=== PATIENT | male | born 1955 | race Caucasian/White ===

== ENCOUNTER 2018-04-29 06:28 | Day surgery (SDC) | payer OTHER ==
[~2018-04-29] VITALS: Ht 190.5 cm; Wt 70.0 kg
[~2018-04-29 06:28] MED LIST: ALBU2.5V5 NEB; ASPI325EC PO; BUDE6HFA INH; BUPROPION PO; CLON.5 PO; Cardizem CD 24240 MG PO; Dicyclomine HCl10 MG PO; ELIQUIS5 MG PO; Flecainide Ace150 MG PO; LANOXIN125 MCG PO; MIRT30 PO; OMEPRAZOLE MAGN20 MG PO; POTA10T PO; PROVENTIL INH; TIMOLOL 0.5%-LAT5 ML UD; TIOT18 INH; TRAZ100 PO
== END 2018-04-29 14:40 | disposition home or self-care (01) ==
LOC: MHTC 06:28
PROC: 4A023N7 Measurement of Cardiac Sampling and Pressure, Left Heart, Percutaneous Approach (ICD-10-PCS; principal; 2018-04-29)
PROC: B211YZZ Fluoroscopy of Multiple Coronary Arteries using Other Contrast (ICD-10-PCS; principal; 2018-04-29)
DX: I48.1 Persistent atrial fibrillation (principal); R06.02 Shortness of breath; R53.83 Other fatigue; R07.89 Other chest pain; I10 Essential (primary) hypertension; E78.5 Hyperlipidemia, unspecified; J44.9 Chronic obstructive pulmonary disease, unspecified; Z87.891 Personal history of nicotine dependence; E78.00 Pure hypercholesterolemia, unspecified
CPT/HCPCS: 93460; 99152; 99153; C1769; C1894; J0690; J1644; J2250; J3010; J7030; Q9967

== ENCOUNTER 2018-05-02 14:11 | Emergency (ER) | payer SELFPAY ==
[~2018-05-02] VITALS: Ht 190.5 cm; Wt 70.3 kg
== END 2018-05-02 15:05 | disposition home or self-care (01) ==
LOC: ER 14:11
DX: L76.32 Postprocedural hematoma of skin and subcutaneous tissue following other procedure (principal); J44.9 Chronic obstructive pulmonary disease, unspecified; Z79.899 Other long term (current) drug therapy; Z87.891 Personal history of nicotine dependence
CPT/HCPCS: 99282

== ENCOUNTER 2018-05-26 10:40 | Day surgery (SDC) | payer OTHER ==
[~2018-05-26] VITALS: Ht 190.5 cm; Wt 72.7 kg
[~2018-05-26 10:40] MED LIST changes: +ADULT ASPIRIN81 MG PO; +ALBU90OI6 INH; +BUPROPION HCL200 MG PO; +Cardizem LA240 MG PO; +FURO20 PO
== END 2018-05-26 22:46 | disposition home or self-care (01) ==
LOC: MHTC 10:40
DX: I48.1 Persistent atrial fibrillation (principal); I10 Essential (primary) hypertension; Z79.02 Long term (current) use of antithrombotics/antiplatelets; Z79.899 Other long term (current) drug therapy
CPT/HCPCS: 92960; 93005; 93010; J7120

== ENCOUNTER 2018-10-17 12:13 | Day surgery (SDC) | payer OTHER ==
[~2018-10-17] VITALS: Ht 190.5 cm; Wt 68.7 kg
[~2018-10-17 12:13] MED LIST changes: +LATANOPROST 0.7.5 ML
== END 2018-10-17 13:30 | disposition home or self-care (01) ==
LOC: ORSCSDS 12:13
PROVIDERS: Internal Medicine Gastroenterology
PROC: 0DB68ZX Excision of Stomach, Via Natural or Artificial Opening Endoscopic, Diagnostic (ICD-10-PCS; principal; 2018-10-17 13:45)
DX: R93.3 Abnormal findings on diagnostic imaging of other parts of digestive tract (principal); I48.91 Unspecified atrial fibrillation; J44.9 Chronic obstructive pulmonary disease, unspecified; I10 Essential (primary) hypertension; Z87.891 Personal history of nicotine dependence; Z79.899 Other long term (current) drug therapy
CPT/HCPCS: 88305; 88342; J2250; J7120

== ENCOUNTER 2019-01-13 11:31 | Day surgery (SDC) | payer OTHER ==
[~2019-01-13] VITALS: Ht 190.5 cm; Wt 66.2 kg
--- NOTE | 2019-01-13 14:03 | NUR ---
01/13/19 1403 Jemima Henson 10ML NORMAL SALINE USED TO RAISE CECAL POLYP
== END 2019-01-13 15:16 | disposition home or self-care (01) ==
LOC: ORSCSDS 11:31
PROVIDERS: Internal Medicine Gastroenterology
PROC: 0DBL8ZX Excision of Transverse Colon, Via Natural or Artificial Opening Endoscopic, Diagnostic (ICD-10-PCS; principal; 2019-01-13 13:30)
PROC: 0DBH8ZX Excision of Cecum, Via Natural or Artificial Opening Endoscopic, Diagnostic (ICD-10-PCS; principal; 2019-01-13 13:30)
PROC: 0DBN8ZX Excision of Sigmoid Colon, Via Natural or Artificial Opening Endoscopic, Diagnostic (ICD-10-PCS; principal; 2019-01-13 13:30)
PROC: 0DBP8ZX Excision of Rectum, Via Natural or Artificial Opening Endoscopic, Diagnostic (ICD-10-PCS; principal; 2019-01-13 13:30)
DX: R19.5 Other fecal abnormalities (principal); D12.0 Benign neoplasm of cecum; D12.3 Benign neoplasm of transverse colon; D12.5 Benign neoplasm of sigmoid colon; D12.8 Benign neoplasm of rectum; K57.30 Diverticulosis of large intestine without perforation or abscess without bleeding; K64.8 Other hemorrhoids; J44.9 Chronic obstructive pulmonary disease, unspecified; I48.0 Paroxysmal atrial fibrillation; Z87.891 Personal history of nicotine dependence; Z79.01 Long term (current) use of anticoagulants; Z79.899 Other long term (current) drug therapy
CPT/HCPCS: 88305; J2704; J7120

== ENCOUNTER 2020-09-15 10:31 | Emergency (ER) | payer OTHER ==
[~2020-09-15] VITALS: Ht 190.5 cm; Wt 72.6 kg
== END 2020-09-15 12:30 | disposition home or self-care (01) ==
LOC: ER 10:31
DX: S99.921A Unspecified injury of right foot, initial encounter (principal); Z79.51 Long term (current) use of inhaled steroids; Z79.899 Other long term (current) drug therapy; Z79.01 Long term (current) use of anticoagulants; W17.2XXA Fall into hole, initial encounter
CPT/HCPCS: 73630

== ENCOUNTER 2021-11-30 13:12 | Emergency (ER) | payer OTHER ==
[~2021-11-30] VITALS: Ht 190.5 cm; Wt 68.0 kg
[2021-11-30] MEDS ORDERED: Norco 5-325 Ta1 EACH PO (14:34)
== END 2021-11-30 16:50 | disposition home or self-care (01) ==
LOC: ER 13:12
DX: T20.14XA Burn of first degree of nose (septum), initial encounter (principal); T20.12XA Burn of first degree of lip(s), initial encounter; F17.200 Nicotine dependence, unspecified, uncomplicated; J44.9 Chronic obstructive pulmonary disease, unspecified; X08.8XXA Exposure to other specified smoke, fire and flames, initial encounter
CPT/HCPCS: 96374; 96376; 99283-25; J2270

== ENCOUNTER 2022-08-23 08:14 | Day surgery (SDC) | payer OTHER ==
[~2022-08-23] VITALS: Ht 190.5 cm; Wt 62.4 kg
[~2022-08-23 08:14] MED LIST changes: +Norco 5-325 Ta1 EACH PO
[2022-08-23] MEDS ORDERED: OMEP20ER PO (08:48)
--- NOTE | 2022-08-23 08:51 | NUR ---
08/23/22 0851 Jaky Garcia AT 0843 PLEDGET AT 0831
--- NOTE | 2022-08-23 09:56 | NUR ---
08/23/22 0956 Zonia Montes A REPORT PASSED ONTO SDU. THEY WILL NOTIFY PCP OF HR.
--- NOTE | 2022-08-23 09:58 | NUR ---
08/23/22 0958 Guera Williamson'K[address] MARTINEZ WANTS STAFF TO CALL THE VE PCP FOR PT HE HAD SOME FIBULATION DURING HIS CATARACT PROCEDURE .. RATES FROM [id number]. LIANET LUCIANO WORKING ON THE CALL NOW...
== END 2022-08-23 10:28 | disposition home or self-care (01) ==
LOC: ORSCSDS 08:14
PROVIDERS: Ophthalmology
PROC: 08RK3JZ Replacement of Left Lens with Synthetic Substitute, Percutaneous Approach (ICD-10-PCS; principal; 2022-08-23 09:30)
DX: H25.12 Age-related nuclear cataract, left eye (principal); I48.91 Unspecified atrial fibrillation; J44.9 Chronic obstructive pulmonary disease, unspecified; K21.9 Gastro-esophageal reflux disease without esophagitis; G47.33 Obstructive sleep apnea (adult) (pediatric); Z79.51 Long term (current) use of inhaled steroids; Z79.899 Other long term (current) drug therapy; Z79.01 Long term (current) use of anticoagulants; Z87.891 Personal history of nicotine dependence
CPT/HCPCS: J2001; J2250; J3010; J3301; V2632

== ENCOUNTER 2022-09-13 08:02 | Day surgery (SDC) | payer OTHER ==
[~2022-09-13] VITALS: Ht 190.5 cm; Wt 64.8 kg
[~2022-09-13 08:02] MED LIST changes: +OMEP20ER PO
--- NOTE | 2022-09-13 09:03 | NUR ---
09/13/22 0903 Mercedes Ramos IN AT 0846 BHAVIN IN AT 0862
--- NOTE | 2022-09-13 14:18 | NUR ---
09/13/22 1418 Malick Rivas PULSE OXYMETERY INACURATE DUE TO IRREGULAR HEART BEAT IN STEP DOWN . PT'S PULSE WAS PALPATED FROM HIGH 50'S TO 110'S IN STEP DOWN. PT HAS HISTORY OF ATRIAL FIBRILATION. PCP AND SENIOR CLINICAL STUDY MANAGER IS AWARE, PER CIRCULATING RN. PT'S COLOR APPEARED NORMAL UPON DISCHARGE, AND HE WAS NOT DIAPHORETIC. PT DENIED DIZZINESS, CHEST PAIN, WEAKNESS, OR OTHER CARDIAC SYMPTOMS. DR. FOREMAN APPROVED PT'S DISCHARGE. PT WAS INSTRUCTED BY DR. LONG AND RN TO FOLLOW UP WITH PCP AND SENIOR CLINICAL STUDY MANAGER IMMEDIATELY REGARDING HEART FUNCTION.
== END 2022-09-13 10:50 | disposition home or self-care (01) ==
LOC: ORSCSDS 08:02
PROVIDERS: Ophthalmology
PROC: 08RJ3JZ Replacement of Right Lens with Synthetic Substitute, Percutaneous Approach (ICD-10-PCS; principal; 2022-09-13 09:30)
DX: H25.11 Age-related nuclear cataract, right eye (principal); Z96.1 Presence of intraocular lens; Z87.891 Personal history of nicotine dependence; I48.91 Unspecified atrial fibrillation; J43.9 Emphysema, unspecified; G47.33 Obstructive sleep apnea (adult) (pediatric); Z79.01 Long term (current) use of anticoagulants; Z99.81 Dependence on supplemental oxygen; Z79.899 Other long term (current) drug therapy
CPT/HCPCS: J2001; J2250; J3010; J3301; J7040; V2632

== ENCOUNTER 2024-06-04 06:08 | Emergency (ER) | payer OTHER ==
[~2024-06-04] VITALS: Ht 190.5 cm; Wt 86.2 kg
[~2024-06-04 06:08] MED LIST changes: +ALBU2.5V5; +ALBU90OI INH; +Amiodarone HCl200 MG PO; +BUPR150ER PO; +Bisoprolol Fumar5 MG PO; +DULCOLAX400 MG/5 M PO; +ELIQUIS5 M2 PO; +FINA5 PO; +FLUDROCORTISON0.1 M1 PO; +FOLI1 PO; +GABA100 PO; +GUAI600T33 PO; +KETO200ER BOTHEYES; +LATA.005SO; +LATANOPROST2.5 M3 LEFTEYE; +MIRALAX17 GM PO; +MULVITA PO; +Magic Bullet10 MG PR; +Magnesium Citr296 ML PO; +ONDA4ODT MM; +POLY500; +PRED20 PO; +REMERON30 M6 PO; +STIOLTO RESPIMAT4 G1 INH; +TAMS.4ER PO; +ZADITOR5 M1
[2024-06-04] MEDS ORDERED: FentaNYL Citrate 50 MCG/ML 2 ML Injection IV ONE (06:15)
[2024-06-04] MEDS ORDERED: Apixaban 5 MG Tab PO ONE (08:55)
[2024-06-04] MEDS ORDERED: Amiodarone HCl 200 MG Tab PO ONE (08:55)
[2024-06-04] MEDS ORDERED: OxyCODONE HCL 5 MG TAB PO ONE (08:55)
[2024-06-04 09:00] VITALS: BP 132/102
[2024-06-04 10:04] LABS: BASOPHILS ABSOLUTE AUTO 0.06 K/mm3 (0.00-0.23); BASOPHILS PERCENT AUTO 1 % (0-2); EOSINOPHILS ABSOLUTE AUTO 0.07 K/mm3 (0.00-0.68); EOSINOPHILS PERCENT AUTO 1 % (0-6); Hematocrit 33.5 % (37.0-53.0); Hemoglobin 11.7 g/dL (13.5-17.5); IMMATURE GRAN ABSOLUTE AUTO 0.15 K/mm3 (0.00-0.10); IMMATURE GRAN PERCENT AUTO 2 % (0-1); LYMPHOCYTES ABSOLUTE AUTO 1.12 K/mm3 (0.84-5.20); LYMPHOCYTES PERCENT AUTO 13 % (21-46); MONOCYTES ABSOLUTE AUTO 0.83 K/mm3 (0.16-1.47); MONOCYTES PERCENT AUTO 10 % (4-13); Mean Corpuscular HGB 37.1 pg (26.0-34.0); Mean Corpuscular HGB Conc 34.9 g/dL (31.5-36.5); Mean Corpuscular Volume 106 fL (80-100); Mean Platelet Volume 9.3 fL (9.1-12.4); NEUTROPHILS ABSOLUTE AUTO 6.28 K/mm3 (1.96-9.15); NEUTROPHILS PERCENT AUTO 74 % (41-73); NRBC ABSOLUTE 0.04 K/mm3 (0.00-0.02); NRBC Auto 0.5 /100 WBC (0.0-0.2); Platelet Count 180 K/mm3 (150-400); RDW Coefficient Variation 12.1 % (11.7-14.2); Red Blood Cell Count 3.15 M/mm3 (4.30-5.90); White Blood Cell Count 8.51 K/mm3 (4.00-11.30)
[2024-06-04 10:27] LABS: Albumin, Blood 3.1 g/dL (3.4-5.0); Albumin/Globulin Ratio 0.9 (0.8-1.8); Bilirubin, Total 0.6 mg/dL (0.1-1.0); Bun/Creatinine Ratio 11.6 (12.0-20.0); Creatinine, Blood 0.95 mg/dL (0.60-1.20); Globulin, Blood 3.4 g/dL (2.2-4.0); Total Protein, Blood 6.5 g/dL (6.4-8.2)
[2024-06-04] MEDS ORDERED: Polyethylene Glycol 3350 17 gm PO ONE (10:50)
[2024-06-04] MEDS ORDERED: SULTRIDS PO (11:38)
[2024-06-04] MEDS ORDERED: MIRT15 PO (11:40)
[2024-06-04] MEDS ORDERED: MELATONIN5 M1 PO (11:41)
[2024-06-04] MEDS ORDERED: OMEP20ER PO (11:41)
[2024-06-04] MEDS ORDERED: Acetaminophen 500 MG Tab PO PRN (11:45)
[2024-06-04] MEDS ORDERED: Trimethoprim/Sulfamethoxazole DS Tab PO SCH (11:45)
[2024-06-04] MEDS ORDERED: OxyCODONE HCL 5 MG TAB PO PRN (11:45)
[2024-06-04] MEDS ORDERED: Roxicodone5 MG PO (12:55)
[2024-06-04] MEDS ORDERED: Miralax17 GM PO (12:55)
== END 2024-06-04 21:23 | disposition home or self-care (01) ==
LOC: ER 06:08
PROVIDERS: Emergency Medicine
DX: S82.65XA Nondisplaced fracture of lateral malleolus of left fibula, initial encounter for closed fracture (principal); K59.00 Constipation, unspecified; J44.9 Chronic obstructive pulmonary disease, unspecified; W01.0XXA Fall on same level from slipping, tripping and stumbling without subsequent striking against object, initial encounter; Z79.899 Other long term (current) drug therapy; Z88.8 Allergy status to other drugs, medicaments and biological substances
CPT/HCPCS: 29505; 73610; 73630; 73700; 74018; 80053; 82550; 85025; 93005; 93010; 96374-59; 99284-25; A9270; J3010